=== PATIENT | male | born 1930 | race Caucasian/White ===

== ENCOUNTER → 2016-07-10 | Outpatient (CLI) | payer MEDICARE ==
--- NOTE | 2016-07-13 11:34 | REP ---
CT LUMBAR SPINE WITHOUT CONTRAST: 07/10/2016. No comparison study. Clinical history: Low back pain. Spinal stenosis. Prior history of colon cancer. States prior low back surgery. Findings: Standard noncontrast technique was utilized. This is a redictation. The original dictation could not be retrieved from the voice bank. The normal lordosis is slightly exaggerated. There is a 3 mm retrolisthesis of L1 on 2, 2 mm retrolisthesis of L2-3. There is anterolisthesis of L4 on 5 about 3 mm and of L5 on S1 about 4 mm. Disc space heights are maintained. There are posterior osteophytes greatest at the L1. Anterior osteophytes are greatest at L1-2. No acute compression deformity. The disc space at T12-L1 is narrowed. There is facet arthropathy at L3-4 through L5-S1. Bones are demineralized. At T11-12 there is no disc herniation or spinal stenosis. Foramina adequate. At T12-L1 there is no significant disc bulge. There is a metallic density in the disc space at L1-2 along the inferior endplate of T12. There is no spinal stenosis. There is no foraminal encroachment. At L1-2, there is posterior osteophytic ridge but no significant spinal or foraminal stenosis. At L2-3, there is no significant disc bulge or herniation and no spinal or foraminal stenosis. At L3-4, minimal broad-based disc bulge flattening the ventral thecal sac but no significant spinal or foraminal stenosis. L4-5 broad-based disc bulge flattening the ventral thecal sac with a the cross-sectional area the canal only marginally adequate due to combined factors with facet and ligamentum hypertrophy. Foramina appear adequate. At L5-S1 there is a broad-based disc bulge, some ligamentum flavum and facet hypertrophy. A few millimeters of anterolisthesis are due to facet arthritis at all these levels where it is present. No spondylolysis. Impression: 1. Diffuse degenerative disc changes with marginal osteophytes at L1-2 and L2-3 and with disc bulges at all levels. The cross-sectional area of the canal is marginal at the L4-5 level due to combined factors. 2. Anterolisthesis at L4 on L5 and L5 on S1 due to facet arthritis and minimal retrolisthesis of L1 on L2 and L2 on 3. 3. No compression deformity or destructive lesion. Unreviewed
--- NOTE | 2016-07-13 13:23 | REP ---
CT LUMBAR SPINE WITHOUT CONTRAST: HISTORY: Spinal stenosis. A diffuse disc bulge is present at the L1-2 level. There are 3 mm of retrolisthesis of L1 on 2. There is minimal compression of the thecal sac. There L1 nerves exit the neural foramina without compression. A diffuse disc bugle is present at the L2-3 level. There are 2 mm of retrolisthesis of L2 on 3. There is minimal compression of the thecal sac. The L2 nerves exit the neural foramina without compression. A diffuse disc bulge is present at the L3-4 level. There is minimal compression of the thecal sac. There is hypertrophy of the posterior articulating facets. The L3 nerves exit the neural foramina without compression. A diffuse disc bulge is present at the L4-5 level. There is hypertrophy of the ligamenta flava and posterior articulating facets. There are 3 mm of grade 1 spondylolisthesis of L4 on 5. These findings produce mild central canal stenosis. The L4 nerves exit the neural foramina without compression. A diffuse disc bulge is present at the L5-S1 level. There is minimal compression of the thecal sac. There is hypertrophy of the posterior articulating facets. The L5 nerves exit the neural foramina without compression. The T12-L1, L1-2, and L4-5 intervertebral discs are decreased in height consistent with disc degeneration. There is an old compression fracture of the T12 vertebral body with minimal height loss. IMPRESSION: 1. Diffuse disc bulge and retrolisthesis at the L1-2 and L2-3 levels with minimal thecal sac compression. 2. Diffuse disc bulge at the L3-4 level with minimal thecal sac compression. 3. Mild central canal stenosis at the L4-5 level secondary to disc bulge, ligamentous, and facet hypertrophy and grade 1 spondylolisthesis. 4. Diffuse disc bulge at the L5-S1 level with minimal thecal sac compression. There is grade 1 spondylolisthesis of L5 on S1. Unreviewed
== END ==
LOC: EDBD → M RAD 10:03 → MERGE 10:30
PROVIDERS: ATTEND Physician Assistant
DX: M48.06 Spinal stenosis, lumbar region (principal); M51.26 Other intervertebral disc displacement, lumbar region; M43.16 Spondylolisthesis, lumbar region; M43.17 Spondylolisthesis, lumbosacral region

== ENCOUNTER 2017-07-28 09:33 | Day surgery (SDC) | payer MEDICARE ==
[~2017-07-28 09:33] MED LIST: ACETAMINOPHEN 325 MG TAB PO; PROPARACAINE 0.5% OPHTH SOL 15ML OU
[2017-07-28] MEDS ORDERED: LR 1,000 ML IV ×2 (09:45→13:15)
[2017-07-28] MEDS: LIDOCAINE 3.5 % 1ML OPHTH TOPICAL GEL OU (10:10)
[2017-07-28] MEDS: SODIUM BICARBONATE 4.2% INJ 10 ML SYRINGE As Ordered (11:09)
[2017-07-28] MEDS ORDERED: PROPOFOL 200 MG/20 ML VIAL As Ordered (11:10)
[2017-07-28] MEDS ORDERED: LIDOCAINE 2% INJ 100 MG/5 ML SDV (FOR ANES.) As Ordered (11:10)
[2017-07-28] MEDS ORDERED: MIDAZOLAM INJ 2 MG/2 ML VIAL (J2250) As Ordered (11:11)
[2017-07-28] MEDS ORDERED: fentaNYL 100 MCG/2 ML INJECTION (J3010) As Ordered (11:11)
[2017-07-28] MEDS: TOBRADEX OPHTH OINT 3.5 GM As Ordered (11:42)
[2017-07-28] MEDS: LIDOCAINE 2% W/EPIN INJ 20ML **PRES FREE As Ordered (11:43)
[2017-07-28] MEDS ORDERED: AcetaZOLAMIDE 500 MG ER CAP PO (13:00)
[2017-07-28] MEDS ORDERED: TRIMETHOBENZAMIDE 300 MG CAP PO (13:00)
[2017-07-28] MEDS: ACETAMINOPHEN TAB 650MG DOSE (2X325MG) PO (13:00)
== END 2017-07-28 13:35 | disposition home or self-care (01) ==
LOC: M SDC 09:33
DX: H02.403 Unspecified ptosis of bilateral eyelids (principal); I10 Essential (primary) hypertension; E78.00 Pure hypercholesterolemia, unspecified; R00.1 Bradycardia, unspecified; K21.9 Gastro-esophageal reflux disease without esophagitis; M12.9 Arthropathy, unspecified; J44.9 Chronic obstructive pulmonary disease, unspecified; Z79.899 Other long term (current) drug therapy; Z79.82 Long term (current) use of aspirin; Z85.828 Personal history of other malignant neoplasm of skin; Z85.038 Personal history of other malignant neoplasm of large intestine
CPT/HCPCS: 67904